=== PATIENT | female | born 1940 | race Asian ===

== ENCOUNTER 2020-09-20 10:11 | Emergency (ER) | payer BC, SELFPAY ==
--- NOTE | 2020-09-20 11:05 | RAD REPORT ---
EXAM DESCRIPTION: RAD - Wrist Right 3 View - 09/20/2020 10:59 am CLINICAL HISTORY: DEFORMITY Pain COMPARISON: No comparisons FINDINGS: Diffuse osteopenia. Fracture of the distal radius as well as the ulnar styloid is present. Moderate surrounding soft tissue swelling.
--- NOTE | 2020-09-20 11:09 | RAD REPORT ---
EXAM DESCRIPTION: RAD - Forearm Right - 09/20/2020 10:59 am CLINICAL HISTORY: DEFORMITY COMPARISON: No comparisons FINDINGS: Diffuse osteopenia is seen. Distal radius and distal ulnar metaphyseal fractures are prese nt. Dislocation is not evident however detail is somewhat limited by high degree of osteopenia.
--- NOTE | 2020-09-20 12:15 | EDPHYS ---
Physician Documentation [facility] Name: Nancy Sanchez Age: 80 yrs Sex: Female : 1940 Arrival Date: 09/20/2020 Time: 10:14 Bed 8 Private MD: [facility] Physician Pedro Doe HPI: 09/20 12:06 This 80 yrs old Female presents to ER via Ambulatory with complaints of Wrist marcell Injury. 12:06 The patient or guardian reports decreased range of motion, pain, swelling, tenderness. marcell The complaints affect the right wrist diffusely. Context: The problem was sustained at home. Onset: The symptoms/episode began/occurred just prior to arrival. Modifying factors: The symptoms are alleviated by elevation, holding still, ice/coldpack to affected area, splinting, the symptoms are aggravated by movement, dependent position. Associated signs and symptoms: The patient has no apparent associated signs or symptoms. The patient has not experienced similar symptoms in the past. Historical: - Allergies: 10:23 No Known Allergies; ca1 - Home Meds: 10:23 aspirin 81 mg Oral TbEC 1 tab once daily [Active]; omeprazole 20 mg Oral cpDR 1 cap 2 ca1 times per day [Active]; lisinopril 40 mg Oral tab 1 tab once daily [Active]; atorvastatin 40 mg oral tab 1 tab once daily [Active]; amlodipine 10 mg tab 1 tab once daily [Active]; nebivolol oral 10 mg oral 1 tab [Active]; - PMHx: 10:23 High Cholesterol; Hypertension; ca1 - PSHx: 10:23 Knee surgery; ca1 - Immunization history:: Adult Immunizations up to date, Flu vaccine is up to date. - Social history:: Smoking status: Patient denies any tobacco usage or history of. - Family history:: not pertinent. ROS: 12:06 Constitutional: Negative for fever, chills, and weight loss, Eyes: Negative for injury, marcell pain, redness, and discharge, ENT: Negative for injury, pain, and discharge, Neck: Negative for injury, pain, and swelling, Cardiovascular: Negative for chest pain, palpitations, and edema, Respiratory: Negative for shortness of breath, cough, wheezing, and pleuritic chest pain, Abdomen/GI: Negative for abdominal pain, nausea, vomiting, diarrhea, and constipation, Back: Negative for injury and pain, : Negative for injury, bleeding, discharge, and swelling, Skin: Negative for injury, rash, and discoloration, Neuro: Negative for headache, weakness, numbness, tingling, and seizure, Psych: Negative for depression, anxiety, suicide ideation, homicidal ideation, and hallucinations, Allergy/Immunology: Negative for hives, rash, and allergies, Endocrine: Negative for neck swelling, polydipsia, polyuria, polyphagia, and marked weight changes, Hematologic/Lymphatic: Negative for swollen nodes, abnormal bleeding, and unusual bruising. 12:06 MS/extremity: Positive for decreased range of motion, pain, swelling, tenderness, of the dorsal aspect of right wrist and palmar aspect of right wrist. Exam: 12:06 Constitutional: This is a well developed, well nourished patient who is awake, alert, marcell and in no acute distress. Head/Face: Normocephalic, atraumatic. Eyes: Pupils equal round and reactive to light, extra-ocular motions intact. Lids and lashes normal. Conjunctiva and sclera are non-icteric and not injected. Cornea within normal limits. Periorbital areas with no swelling, redness, or edema. ENT: Nares patent. No nasal discharge, no septal abnormalities noted. Tympanic membranes are normal and external auditory canals are clear. Oropharynx with no redness, swelling, or masses, exudates, or evidence of obstruction, uvula midline. Mucous membranes moist. Neck: Trachea midline, no thyromegaly or masses palpated, and no cervical lymphadenopathy. Supple, full range of motion without nuchal rigidity, or vertebral point tenderness. No Meningismus. Chest/axilla: Normal chest wall appearance and motion. Nontender with no deformity. No lesions are appreciated. Cardiovascular: Regular rate and rhythm with a normal S1 and S2. No gallops, murmurs, or rubs. Normal PMI, no JVD. No pulse deficits. Respiratory: Lungs have equal breath sounds bilaterally, clear to auscultation and percussion. No rales, rhonchi or wheezes noted. No increased work of breathing, no retractions or nasal flaring. Abdomen/GI: Soft, non-tender, with normal bowel sounds. No distension or tympany. No guarding or rebound. No evidence of tenderness throughout. Back: No spinal tenderness. No costovertebral tenderness. Full range of motion. Skin: Warm, dry with normal turgor. Normal color with no rashes, no lesions, and no evidence of cellulitis. Neuro: Awake and alert, GCS 15, oriented to person, place, time, and situation. Cranial nerves II-XII grossly intact. Motor strength 5/5 in all extremities. Sensory grossly intact. Cerebellar exam normal. Normal gait. Psych: Awake, alert, with orientation to person, place and time. Behavior, mood, and affect are within normal limits. 12:06 Musculoskeletal/extremity: Extremities: grossly normal except: noted in the dorsal aspect of right wrist and palmar aspect of right wrist: decreased ROM, pain, swelling, tenderness. Vital Signs: 10:17 BP 155 / 70; Pulse 76; Resp 16 S; Temp 97.8(TE); Pulse Ox 100% on R/A; Weight 49.9 kg ca1 (R); Height 4 ft. 11 in. (149.86 cm) (R); Pain 6/10; 11:31 BP 135 / 59; Pulse 69; Resp 16; Pulse Ox 100% ; bp 10:17 Body Mass Index 22.22 (49.90 kg, 149.86 cm) ca1 Procedures: 12:06 Splinting: using Orthoglass splint, sling, applied by tech. nurse. Examined by me, post [facility] splint application: neurovascular intact. MDM: 10:40 Patient medically screened. [facility] 12:06 Differential diagnosis: closed fracture. Data reviewed: vital signs, nurses notes, [facility] radiologic studies, plain films. Data interpreted: monitoring tech: rate is 69 beats/min, rhythm is regular, Pulse oximetry: on room air is 100 %. Test interpretation: by ED physician or midlevel provider: plain radiologic studies. 09/20 10:28 Order name: Wrist Right 3 View XRAY bp 09/20 10:28 Order name: Forearm Right XRAY bp 09/20 10:41 Order name: Ice pack; Complete Time: 10:56 marcell 09/20 12:02 Order name: Splint - Sugar Tong - Forearm; Complete Time: 12:02 bp 09/20 12:02 Order name: Sling; Complete Time: 12:02 bp Administered Medications: 12:11 Drug: Volga 5 mg-325 mg 1 tabs Route: PO; bp Disposition: 09/20/20 12:14 Discharged to Home. Impression: Fall due to bumping against object, Fracture at wrist and hand level - dital radius and distal ulnar metaphyseal fractures, osteopenia, Osteopetrosis. - Condition is Stable. - Discharge Instructions: Wrist Fracture Treated With Immobilization, Wrist Fracture Treated With Immobilization, [id number], Fall Prevention in the Home, [id number]. - Prescriptions for Tylenol- Codeine #3 300-30 mg Oral Tablet - take 1 tablet by ORAL route every 4 hours As needed; 26 tablet. - Medication Reconciliation Form, Thank You Letter, Antibiotic Education, Prescription Opioid Use form. - Follow up: Private Physician; When: 2 - 3 days; Reason: Recheck today's complaints, Continuance of care, Re-evaluation by your physician. Follow up: Keshav Mendiola MD; When: 2 - 3 days; Reason: Recheck today's complaints, Re-evaluation by your physician. - Problem is new. - Symptoms have improved. Signatures: Dispatcher [employer] EDMS Pedro Doe MD MD cha Calderon, Audri, RN RN aa5 Camilo Parker RN RN bp Brenna Rice RN RN ca1 Corrections: (The following items were deleted from the chart) 12: 12:14 09/20/2020 12:14 Discharged to Home. Impression: Fall due to bumping against aa5 object; Fracture at wrist and hand level - dital radius and distal ulnar metaphyseal fractures, osteopenia; Osteopetrosis. Condition is Stable. Forms are Medication Reconciliation Form, Thank You Letter, Antibiotic Education, Prescription Opioid Use. Follow up: Private Physician; When: 2 - 3 days; Reason: Recheck today's complaints, Continuance of care, Re-evaluation by your physician. Follow up: Dr. Keshav Mendiola; When: 2 - 3 days; Reason: Recheck today's complaints, Re-evaluation by your physician. Problem is new. Symptoms have improved. marcell
--- NOTE | 2020-09-20 12:15 | ER ---
Nurse's Notes [facility] Name: Nancy Sanchez Age: 80 yrs Sex: Female : 1940 Arrival Date: 09/20/2020 Time: 10:14 Bed 8 Private MD: Diagnosis: Fall due to bumping against object;Fracture at wrist and hand level-dital radius and distal ulnar metaphyseal fractures, osteopenia;Osteopetrosis Presentation: 09/20 10:17 Chief complaint: Patient's son or daughter states: Son-in-law: Slipped and fell ca1 yesterday morning. Reports pain and swelling on the R wrist. Denies LOC with the fall. Denies hitting head. Coronavirus screen: Client denies travel out of the [place] in the last 14 days. At this time, the client does not indicate any symptoms associated with coronavirus-19. The client denies any previous COVID testing. Ebola Screen: Patient negative for fever greater than or equal to 101.5 degrees Fahrenheit, and additional compatible Ebola Virus Disease symptoms Patient denies exposure to infectious person. Patient denies travel to an Ebola-affected area in the 21 days before illness onset. No symptoms or risks identified at this time. Initial Sepsis Screen: Does the patient meet any 2 criteria? No. Patient's initial sepsis screen is negative. Does the patient have a suspected source of infection? No. Patient's initial sepsis screen is negative. Risk Assessment: Do you want to hurt yourself or someone else? Patient reports no desire to harm self or others. Onset of symptoms was September 19, 2020. 10:17 Method Of Arrival: Ambulatory ca1 10:17 Acuity: CECIL 4 ca1 Triage Assessment: 10:20 General: Appears distressed, uncomfortable, Behavior is calm, cooperative, appropriate bp for age. Pain: Complains of pain in right wrist. EENT: No deficits noted. Neuro: No deficits noted. Cardiovascular: No deficits noted. Respiratory: No deficits noted. GI: No signs and/or symptoms were reported involving the gastrointestinal system. : No signs and/or symptoms were reported regarding the genitourinary system. Derm: No deficits noted. Musculoskeletal: Circulation, motion, and sensation intact. Range of motion: limited in right wrist Bony deformity noted of right wrist. Injury Description: Deformity sustained to right wrist. Historical: - Allergies: 10:23 No Known Allergies; ca1 - Home Meds: 10:23 aspirin 81 mg Oral TbEC 1 tab once daily [Active]; omeprazole 20 mg Oral cpDR 1 cap 2 ca1 times per day [Active]; lisinopril 40 mg Oral tab 1 tab once daily [Active]; atorvastatin 40 mg oral tab 1 tab once daily [Active]; amlodipine 10 mg tab 1 tab once daily [Active]; nebivolol oral 10 mg oral 1 tab [Active]; - PMHx: 10:23 High Cholesterol; Hypertension; ca1 - PSHx: 10:23 Knee surgery; ca1 - Immunization history:: Adult Immunizations up to date, Flu vaccine is up to date. - Social history:: Smoking status: Patient denies any tobacco usage or history of. - Family history:: not pertinent. Screenin:20 Abuse screen: Denies threats or abuse. Denies injuries from another. Nutritional bp screening: No deficits noted. Tuberculosis screening: No symptoms or risk factors identified. Fall Risk None identified. Assessment: 10:20 General: SEE TRIAGE NOTE. bp 11:31 Reassessment: No changes from previously documented assessment. Patient and/or family bp updated on plan of care and expected duration. Pain level reassessed. Patient is alert, oriented x 3, equal unlabored respirations, skin warm/dry/pink. XRAY COMPLETED. 12:00 Reassessment: SPLINT APPROVED BY MD. NERI PENDING. PT REMAINS NEUROVASCULAR INTACT. bp 12:18 Reassessment: Patient is alert, oriented x 3, equal unlabored respirations, skin aa5 warm/dry/pink. Vital Signs: 10:17 BP 155 / 70; Pulse 76; Resp 16 S; Temp 97.8(TE); Pulse Ox 100% on R/A; Weight 49.9 kg ca1 (R); Height 4 ft. 11 in. (149.86 cm) (R); Pain 6/10; 11:31 BP 135 / 59; Pulse 69; Resp 16; Pulse Ox 100% ; bp 10:17 Body Mass Index 22.22 (49.90 kg, 149.86 cm) ca1 ED Course: 10:14 Patient arrived in ED. as 10:20 Triage completed. ca1 10:20 Patient has correct armband on for positive identification. Placed in gown. Bed in low bp position. Call light in reach. Side rails up X2. Adult w/ patient. 10:23 Arm band placed on right wrist. ca1 10:26 Camilo Parker, RN is Primary Nurse. bp 10:29 Affected limb iced. ca1 10:40 Pedro Doe MD is Attending Physician. marcell 10:59 Wrist Right 3 View XRAY In Process Unspecified. EDMS 10:59 Forearm Right XRAY In Process Unspecified. EDMS 11:45 Orthoglass splint: Sugar tong splint applied on right arm. Sling applied to right arm. bp 12:10 Keshav Mendiola MD is Referral Physician. marcell 12:18 No provider procedures requiring assistance completed. Patient did not have IV access aa5 during this emergency room visit. Administered Medications: 12:11 Drug: Flasher 5 mg-325 mg 1 tabs Route: PO; bp Outcome: 12:14 Discharge ordered by . marcell 12:18 Discharged to home ambulatory, with family. aa5 12:18 Condition: stable 12:18 Discharge instructions given to patient, family, Instructed on discharge instructions, follow up and referral plans. medication usage, Demonstrated understanding of instructions, follow-up care, medications, Prescriptions given X 1. 12:20 Patient left the ED. aa5 Signatures: Dispatcher [employer] EDPedro Saravia MD MD cha Martinez, Amelia as Calderon, Audri, RN RN aa5 Camilo Parker, RN RN bp Brenna Rice RN RN ca1
[2020-09-20] MEDS ORDERED: HYDROCODONE/APAP 5/325 MG TAB ONE (12:22)
[2020-09-20 13:14] VITALS: TEMP 97.8; O2SAT 100
[2020-09-20 13:21] VITALS: BP 135/59
== END 2020-09-20 12:20 | disposition home or self-care (01) ==
LOC: ER 10:11
PROC: 2W3CX1Z Immobilization of Right Lower Arm using Splint (ICD-10-PCS; principal; 2020-09-20)
DX: S52.301A Unspecified fracture of shaft of right radius, initial encounter for closed fracture (principal); S52.201A Unspecified fracture of shaft of right ulna, initial encounter for closed fracture; M85.80 Other specified disorders of bone density and structure, unspecified site; M81.0 Age-related osteoporosis without current pathological fracture; W01.0XXA Fall on same level from slipping, tripping and stumbling without subsequent striking against object, initial encounter; Y93.9 Activity, unspecified; Y92.009 Unspecified place in unspecified non-institutional (private) residence as the place of occurrence of the external cause; Z79.82 Long term (current) use of aspirin; I10 Essential (primary) hypertension; E78.00 Pure hypercholesterolemia, unspecified
CPT/HCPCS: 99284